=== PATIENT | male | born 1965 | race Caucasian/White ===

== ENCOUNTER 2019-04-04 18:54 | Emergency (ER) | payer MEDICAID ==
[2019-04-04] MEDS ORDERED: Lidocaine 1% with EPINEPHrine 1:100,000 50 ML MDV INFILT ONE (19:16)
[2019-04-04] MEDS ORDERED: Bacitracin Oint 1 GM U/D Packet TOP ONE (19:16)
--- NOTE | 2019-04-04 19:18 | EDM.PDOC ---
ED HPI GENERAL MEDICAL PROBLEM - General Chief Complaint: Laceration Stated Complaint: CUT L WRIST Time Seen by Provider: 04/04/19 18:56 Source of Information: Reports: Patient History Limitations: Reports: No Limitations - History of Present Illness INITIAL COMMENTS - FREE TEXT/NARRATIVE: 53 yo male present with laceration to his left forearm. He was pulling electrical wire through box and slipped falling into the corner of the box. bleeding is controlled. He is up to date on tetanus. - Related Data Allergies Allergy/AdvReac Type Severity Reaction Status Date / Time Penicillins Allergy Rash Verified 09/07/18 09:47 Home Meds: Home Meds NK [No Known Home Meds] 04/04/19 [History] Past Medical History Genitourinary History: Reports: Renal Calculus - Infectious Disease History Infectious Disease History: Reports: Chicken Pox - Past Surgical History Male Surgical History: Reports: Kidney Stone Extraction Social & Family History - Family History Family Medical History: Noncontributory - Tobacco Use Smoking Status *Q: Never Smoker - Caffeine Use Caffeine Use: Reports: Coffee Caffeine Use Comment: daily - Alcohol Use Days Per Week of Alcohol Use: 2 Number of Drinks Per Day: 3 Total Drinks Per Week: 6 - Recreational Drug Use Recreational Drug Use: No ED ROS GENERAL - Review of Systems Review Of Systems: See Below Constitutional: Denies: Fever, Chills, Fatigue Respiratory: Denies: Shortness of Breath Cardiovascular: Denies: Chest Pain ED EXAM, SKIN/RASH Exam: See Below Exam Limited By: No Limitations General Appearance: Alert, WD/WN, No Apparent Distress Respiratory/Chest: No Respiratory Distress Neurological: Alert, Oriented Skin: Warm, Dry, Intact, No Rash, Other (pie shaped multiflap with undermining laceration left anterior forearm 7cm with 4 cm x 4 cm pie medial and undermining distal portion of laceration) ED SKIN PROCEDURES - Laceration/Wound Repair Left Anterior Medial Arm Lac/Wound length In cm: 7 Appearance: Superficial, Subcutaneous Distal NVT: Neuro & Vascular Intact Anesthetic Type: Digital Local Anesthesia - Lidocaine (Xylocaine): 1% with EPI Local Anesthetic Volume: 5cc Skin Prep: Chlorhexidine (Hibiciens), Saline, Sterile Drape Saline Irrigation (cc's): 200 Exploration/Debridement/Repair: Wound Explored, In a Bloodless Field, Explored to Base, Minimal Debridement, Moderately Undermined, No Foreign Material Found, Multiple Flaps Aligned Suture Size: 4-0 # of Sutures: 22 Suture Type: Nylon, Interrupted, Simple Sterile Dressing Applied: Nurse Tetanus Status Addressed: Yes Complications: No Course - Vital Signs Last Recorded V/S: Last Vital Signs Temp 36.2 C 04/04/19 19:07 Pulse 97 04/04/19 19:07 Resp 16 04/04/19 19:07 BP 120/78 04/04/19 19:07 Pulse Ox 94 L 04/04/19 19:07 - Orders/Labs/Meds Meds: Medications Discontinued Medications Generic Name Dose Route Start Last Admin Trade Name Luly PRN Reason Stop Dose Admin Bacitracin 1 dose 04/04/19 19:16 Bacitracin Oint 1 Gm TOP 04/04/19 19:17 ONETIME ONE Lidocaine/Epinephrine 6 ml 04/04/19 19:16 Xylocaine 1% With Epinephrine 1:100,000 INFILT 04/04/19 19:17 ONETIME ONE Departure - Departure Time of Disposition: 19:57 Disposition: Home, Self-Care 01 Condition: Good Clinical Impression: Laceration of arm Qualifiers: Encounter type: initial encounter Laterality: left Qualified Code(s): S41.112A - Laceration without foreign body of left upper arm, initial encounter - Discharge Information *PRESCRIPTION DRUG MONITORING PROGRAM REVIEWED*: Not Applicable *COPY OF PRESCRIPTION DRUG MONITORING REPORT IN PATIENT JAYLON: Not Applicable Instructions: Sutured Wound Care, [id number] Referrals: David Taylor MD [Primary Care Provider] - Forms: ED Department Discharge Additional Instructions: sutures out in 8 days no soaking or swimming until sutures are out ice for pain control tonight keep wound dry and clean observe for signs of infection - fire engine red, purulent drainage, increase in pain or swelling
== END 2019-04-04 20:06 | disposition home or self-care (01) ==
LOC: JP.ED 18:54
DX: S51.812A Laceration without foreign body of left forearm, initial encounter (principal); Z88.0 Allergy status to penicillin; W26.8XXA Contact with other sharp object(s), not elsewhere classified, initial encounter
CPT/HCPCS: 12002; 99282

== ENCOUNTER 2023-07-23 15:58 | Emergency (ER) | payer MEDICAID ==
[2023-07-23] MEDS: Bacitracin Oint 1 GM U/D Packet TOP ONE (19:43)
[2023-07-23] MEDS: Lidocaine 1% with EPINEPHrine 1:100,000 50 ML MDV SUBCUT ONE (19:43)
[2023-07-23] MEDS: Diphtheria,Pertussis(Acell),Tetanus Vaccine 0.5 ML Syringe IM ONE (19:44)
== END 2023-07-23 19:50 | disposition home or self-care (01) ==
LOC: JP.ED 15:58
DX: S61.511A Laceration without foreign body of right wrist, initial encounter (principal); Z88.0 Allergy status to penicillin; Y29.XXXA Contact with blunt object, undetermined intent, initial encounter
CPT/HCPCS: 12002; 90471; 90715; 99282-25